=== PATIENT | female | born 1955 | race Caucasian/White ===

== ENCOUNTER 2019-11-02 12:30 | Emergency (ER) | payer SELFPAY ==
[~2019-11-02] VITALS: Ht 167.6 cm; Wt 54.9 kg
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
--- NOTE | 2019-11-02 13:12 | NUR ---
THI SNOW IS AT THE BEDSIDE SPEAKING TO THE PT.
[2019-11-02] MEDS ORDERED: IBUPROFEN 600 MG TABLET PO ONE ×2 (13:25→13:30)
--- NOTE | 2019-11-02 13:28 | NUR ---
PT LEFT FOR CT VIA RNEY
--- NOTE | 2019-11-02 14:16 | NUR ---
DR PETERS IS OUTSIDE AND SPEAKING TO THE PT'S FAMILY.
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
[2019-11-02 15:02] VITALS: BP 130/86
== END 2019-11-02 15:03 | disposition home or self-care (01) ==
LOC: ER 12:30
DX: S42.392A Other fracture of shaft of left humerus, initial encounter for closed fracture (principal); S00.81XA Abrasion of other part of head, initial encounter; S50.812A Abrasion of left forearm, initial encounter; S50.811A Abrasion of right forearm, initial encounter; R51 Headache; E11.9 Type 2 diabetes mellitus without complications; V09.1XXA Pedestrian injured in unspecified nontraffic accident, initial encounter; Y93.89 Activity, other specified; Y92.89 Other specified places as the place of occurrence of the external cause; Y99.8 Other external cause status
CPT/HCPCS: 70450-TC; 73030-TC

== ENCOUNTER 2021-05-13 22:19 | Inpatient (IN) | payer MEDICAID ==
[~2021-05-13] VITALS: Ht 152.4 cm; Wt 61.2 kg
--- NOTE | 2021-05-13 22:35 | NUR ---
BIBDAUGHTER FROM HOME TO ER BED 6. AAOX4. NOT IN RESP DISTRESS. AMBULATORY. BROUGHT IN FOR LOW O2 SAT SINCE FRIDAY. PER DAUGHTER, PT WAS NOTED WITH O2 SAT IN THE 80% ON RA AT HOME. UPON TRIAGE PT WAS NOTED @ 79%. PT IS REPORTED TO HAVE COVID POSITIVE FOR THE PAST 2 WEEKS. MD AT THE BEDSIDE FOR EVAL. AWAITING ORDERS
[2021-05-13] MEDS ORDERED: DEXAMETHASONE SOD PHOSPHATE 10 MG/ML VIAL ONE (23:15)
[2021-05-13] MEDS ORDERED: ACETAMINOPHEN ES 500 MG TABLET ONE (23:15)
[2021-05-13 23:23] LABS: BASOPHILS % (AUTO) 0.1 % (0.0-2.0); EOSINOPHILS % (AUTO) 0.2 % (0.0-6.0); HEMATOCRIT 40 % (33-45); HEMOGLOBIN 13.6 g/dL (11.5-14.8); LYMPHOCYTES # (AUTO) 0.8 K/uL (0.8-4.8); LYMPHOCYTES % (AUTO) 8.9 % (20.0-44.0); MEAN CORPUSCULAR HGB CONC 34 g/dl (31.0-36.0); MEAN CORPUSCULAR VOLUME 88 fL (82-100); MONOCYTES # (AUTO) 0.3 K/uL (0.1-1.30); MONOCYTES % (AUTO) 3.3 % (2.0-12.0); NEUTROPHILS # (AUTO) 7.5 K/uL (1.8-8.9); NEUTROPHILS % (AUTO) 87.5 % (43.0-81.0); PLATELET COUNT (AUTO) 340 K/uL (150-450); RED BLOOD CELL COUNT(AUTO) 4.53 MIL/uL (4.0-5.2); WHITE BLOOD COUNT (AUTO) 8.6 K/uL (4.3-11.0)
[2021-05-13] MEDS ORDERED: ACETAMINOPHEN ES 500 MG TABLET PO ONE (23:30)
[2021-05-13] MEDS ORDERED: DEXAMETHASONE SOD PHOSPHATE 10 MG/ML VIAL IV ONE (23:30)
[2021-05-14] MEDS ORDERED: Z GUARD REMEDY 4 OZ OINT TP PRN
[2021-05-14] MEDS ORDERED: ONDANSETRON HCL/PF 4 MG/2 ML VIAL IVP PRN
[2021-05-14] MEDS ORDERED: MAGNESIUM HYDROXIDE 30 ML UDC PO PRN
[2021-05-14] MEDS ORDERED: MAG HYDROX/AL HYDROX/SIMETH 30 ML UDC PO PRN
[2021-05-14] MEDS ORDERED: ACETAMINOPHEN 325 MG TABLET PO PRN
[2021-05-14] MEDS ORDERED: ZOLPIDEM TARTRATE 5 MG TABLET PO PRN
--- NOTE | 2021-05-14 00:05 | NUR ---
MRSA SWAB COLLECTED AND SENT TO LAB. PATIENT'S BELONGINGS LIST DONE.
[2021-05-14 00:11] LABS: ALANINE AMINOTRANSFERASE 18 U/L (12-78); ALBUMIN 2.3 g/dL (3.4-5.0); ALKALINE PHOSPHATASE 86 U/L (46-116); ASPARTATE AMINOTRANSFERASE 36 U/L (15-37); BILIRUBIN,TOTAL 0.5 mg/dL (0.2-1.0); CALCIUM, SERUM 8.7 mg/dL (8.5-10.1); CARBON DIOXIDE 26 mmol/L (21-32); CHLORIDE 86 mmol/L (98-107); CREATININE 1.1 mg/dL (0.6-1.3); POTASSIUM 4.1 mmol/L (3.5-5.1); SODIUM SERUM 122 mmol/L (136-145); TOTAL PROTEIN, SERUM 7.4 g/dL (6.4-8.2); UREA NITROGEN, BLOOD 27 mg/dL (7-18)
[2021-05-14 00:17] LABS: GLUCOSE 412 mg/dL (74-106)
[2021-05-14] MEDS ORDERED: INSULIN REGULAR, HUMAN 100 UNIT/ML 10 ML VIAL IV ONE (00:30)
[2021-05-14] MEDS ORDERED: IV NS 0.9% 500 ML IV ONE (00:30)
[2021-05-14] MEDS ORDERED: INSULIN REGULAR, HUMAN 100 UNIT/ML 10 ML VIAL ONE (00:47)
[2021-05-14] MEDS ORDERED: DEXTROSE 50%-WATER 50 ML DISP.SYRIN IV PRN (02:00)
[2021-05-14 02:52] LABS: C-REACTIVE PROTEIN 26.7 mg/dL (0.0-0.9)
--- NOTE | 2021-05-14 04:17 | NUR ---
DAUGHTER, SAMIA: [phone]
[2021-05-14 04:22] LABS: BASOPHILS % (AUTO) 0.1 % (0.0-2.0); HEMATOCRIT 40 % (33-45); HEMOGLOBIN 13.6 g/dL (11.5-14.8); LYMPHOCYTES # (AUTO) 0.7 K/uL (0.8-4.8); MEAN CORPUSCULAR HGB CONC 34 g/dl (31.0-36.0); MEAN CORPUSCULAR VOLUME 89 fL (82-100); MONOCYTES # (AUTO) 0.2 K/uL (0.1-1.30); MONOCYTES % (AUTO) 2.6 % (2.0-12.0); NEUTROPHILS # (AUTO) 8.6 K/uL (1.8-8.9); NEUTROPHILS % (AUTO) 90.3 % (43.0-81.0); PLATELET COUNT (AUTO) 344 K/uL (150-450); RED BLOOD CELL COUNT(AUTO) 4.51 MIL/uL (4.0-5.2); WHITE BLOOD COUNT (AUTO) 9.5 K/uL (4.3-11.0)
[2021-05-14 04:35] LABS: CREATININE 1.2 mg/dL (0.6-1.3); PHOSPHORUS 3.1 mg/dL (2.5-4.9); POTASSIUM 4.5 mmol/L (3.5-5.1)
--- NOTE | 2021-05-14 05:18 | NUR ---
PT'S IV GOT DISLODGE ACCIDENTALLY WHEN SHE MOVED. NEW IV STARTED ON RFA 20G.
--- NOTE | 2021-05-14 07:36 | NUR ---
PT ENDORSED TO GALILEA SULLIVAN FOR MARIBEL
[2021-05-14] MEDS ORDERED: PANTOPRAZOLE 40 MG TABLET.DR PO ONE (07:39)
[2021-05-14] MEDS: PANTOPRAZOLE 40 MG TABLET.DR PO SCH (07:43)
[2021-05-14] MEDS: BLOOD SUGAR DIAGNOSTIC 1 EACH STRIP VI SCH ×4 (07:46→22:23)
[2021-05-14] MEDS: *INSULIN REGULAR(HUMULIN R)HUM 100 UNIT/ML VIAL SQ PRN (08:11)
[2021-05-14] MEDS: DEXAMETHASONE SOD PHOSPHATE 10 MG/ML VIAL IV SCH (09:12)
[2021-05-14] MEDS ORDERED: DEXAMETHASONE SOD PHOSPHATE 10 MG/ML VIAL ONE (09:12)
[2021-05-14] MEDS ORDERED: INSU100V7 SQ (09:45)
[2021-05-14] MEDS ORDERED: METF-442 PO (09:45)
[2021-05-14] MEDS ORDERED: LISI-768 PO (09:45)
--- NOTE | 2021-05-14 10:13 | NUR ---
DR LOYOLA AT BEDSIDE,WANTS HIGH FLOW 02 STARTED
[2021-05-14] MEDS ORDERED: ENOXAPARIN SODIUM 30 MG/0.3 ML DISP.SYRIN SQ SCH (11:00)
[2021-05-14] MEDS: AZITHROMYCIN 500 MG in IV D5W 250 ML IV SCH (11:22)
--- NOTE | 2021-05-14 11:24 | NUR ---
bed given 257
[2021-05-14] MEDS: INSULIN REGULAR, HUMAN 100 UNIT/ML 3 ML VIAL SQ PRN ×2 (13:11→17:58)
[2021-05-14 15:10] LABS: ALBUMIN 2.1 g/dL (3.4-5.0); BILIRUBIN,DIRECT 0.2 mg/dL (0.0-0.2); BILIRUBIN,TOTAL 0.4 mg/dL (0.2-1.0)
[2021-05-14 15:44] LABS: FERRITIN 1743 ng/mL (8-388)
[2021-05-14] MEDS ORDERED: REMDESIVIR (CHARGED) 200 MG, *LOADING DOSE 1 EA in IV NS 0.9% 210 ML IV ONE (17:00)
[2021-05-14 17:45] LABS: C-REACTIVE PROTEIN 26.3 mg/dL (0.0-0.9)
--- NOTE | 2021-05-14 19:12 | NUR ---
REPORT GIVEN TO NURSE LAYLA FOR MARIBEL
--- NOTE | 2021-05-14 20:44 | NUR ---
PER RN PT CAN GO UP IN 30 MINS.
--- NOTE | 2021-05-14 20:44 | NUR ---
REPORT GIVEN TO GALILEA GRAHAM
--- NOTE | 2021-05-14 20:44 | NUR ---
RN notes Received report from GALILEA Betancur
--- NOTE | 2021-05-14 21:22 | NUR ---
TRANSFERRED PATIENT TO [facility]
[2021-05-14 21:30] VITALS: BP 139/79
[2021-05-14 22:00] VITALS: BP 139/79
--- NOTE | 2021-05-14 22:00 | NUR ---
cement rubber notes Received Pt from ER nurse GALILEA Betancur. Pt arrived at the unit with a darek, RAYSHAWN protocol and high flow NC and accompanied by RT. Pt is alert and orientedX4. Pt speaks Upper Sorbian and able to make needs known. Pt is on high flow NC 35 L and fio2 100%. O2 sat is 94%. No SOB. No S/s of distress noted. IV site at RFA# 18 is clean, intact, flushes well and SL. Tele monitor showed SR hr at 84. Skin assesment is done and performed. Pt's belonging was checked by ECHO TECHNICIAN and signed by Pt. Reorient Pt to the room and the use of call light. Pt verbalize understanding. received admission orders from MD. Safety precautions is maintained. Bed at low position, brakes locked, side rails upX2, hob elevated and call light is within reach. Will continue to monitor.
[2021-05-14] MEDS: ENOXAPARIN SODIUM 40 MG/0.4 ML DISP.SYRIN SQ SCH (22:26)
[2021-05-15] VITALS: BP 148/90
[2021-05-15 04:00] VITALS: BP_SYST 131; BP_SYST 133; BP_DIAS 76
[2021-05-15] MEDS: BLOOD SUGAR DIAGNOSTIC 1 EACH STRIP VI SCH ×4 (06:28→22:51)
[2021-05-15] MEDS: INSULIN REGULAR, HUMAN 100 UNIT/ML 3 ML VIAL SQ PRN ×3 (06:30→17:30)
--- NOTE | 2021-05-15 06:40 | NUR ---
RN closing notes Pt is resting in bed comfortably. Pt is alert and orientedX4. Pt is on high flow NC 35 L and fio2 100%. No SOB. No S/s of distress noted. IV site at RFA# 18 is clean, intact, flushes well and SL. Tele monitor showed SR hr at 69. Routine meds were given as ordered. Kept Pt clean, dry and comfortable. Safety precautions is maintained. Bed at low position, brakes locked, hob elevated, side rails upX2, hob elevated and call light is within reach. Will endorse to am nurse for MARIBEL.
[2021-05-15 07:04] LABS: BASOPHILS % (AUTO) 0.1 % (0.0-2.0); HEMATOCRIT 39 % (33-45); HEMOGLOBIN 13.4 g/dL (11.5-14.8); LYMPHOCYTES # (AUTO) 0.7 K/uL (0.8-4.8); LYMPHOCYTES % (AUTO) 7.1 % (20.0-44.0); MEAN CORPUSCULAR HGB CONC 35 g/dl (31.0-36.0); MEAN CORPUSCULAR VOLUME 88 fL (82-100); MONOCYTES # (AUTO) 0.5 K/uL (0.1-1.30); MONOCYTES % (AUTO) 4.6 % (2.0-12.0); NEUTROPHILS # (AUTO) 9.2 K/uL (1.8-8.9); NEUTROPHILS % (AUTO) 88.2 % (43.0-81.0); PLATELET COUNT (AUTO) 455 K/uL (150-450); RED BLOOD CELL COUNT(AUTO) 4.38 MIL/uL (4.0-5.2); WHITE BLOOD COUNT (AUTO) 10.4 K/uL (4.3-11.0)
[2021-05-15 07:16] LABS: BILIRUBIN,DIRECT 0.1 mg/dL (0.0-0.2); BILIRUBIN,TOTAL 0.3 mg/dL (0.2-1.0); CALCIUM, SERUM 8.5 mg/dL (8.5-10.1); POTASSIUM 4.2 mmol/L (3.5-5.1); TOTAL PROTEIN, SERUM 6.7 g/dL (6.4-8.2)
[2021-05-15 08:00] VITALS: BP 123/85
[2021-05-15] MEDS: DEXAMETHASONE SOD PHOSPHATE 10 MG/ML VIAL IV SCH (08:40)
[2021-05-15] MEDS: PANTOPRAZOLE 40 MG TABLET.DR PO SCH (08:40)
[2021-05-15] MEDS: ENOXAPARIN SODIUM 40 MG/0.4 ML DISP.SYRIN SQ SCH ×2 (08:54→20:39)
[2021-05-15] MEDS: AZITHROMYCIN 500 MG in IV D5W 250 ML IV SCH (11:19)
[2021-05-15 12:00] VITALS: BP 145/80
[2021-05-15 16:00] VITALS: BP 138/87
--- NOTE | 2021-05-15 16:22 | NUR ---
SCREEN PRINTER HELPER OPENING NOTES RECEIVED PATIENT IN BED, ASLEEP. PATIENT ON OXYGEN THERAPY AT HIGH FLOW AT 35L AND FIO2 AT 100%. BREATHING EVEN AND UNLABORED, NO SOB NOTED. TELE MONITOR WITH A CURRENT READING OF SR. IV ACCESS AT RFA G # 18 SL. NO S/S OF PAIN. SAFETY PRECAUTIONS IN PLACE; BED IN LOW POSITION AND LOCKED, RAILS UP X2, RANDOLPH LIGHT WITHIN REACH. WILL CONTINUE TO MONITOR PATIENT.
[2021-05-15] MEDS: REMDESIVIR (CHARGED) 100 MG in IV NS 0.9% 100 ML IV SCH (17:14)
--- NOTE | 2021-05-15 19:00 | NUR ---
EARLY CHILDHOOD AIDE CLASSROOM CLOSING NOTES PATIENT IN BED, ASLEEP. PATIENT ON OXYGEN THERAPY AT HIGH FLOW AT 35L AND FIO2 AT 100%. BREATHING EVEN AND UNLABORED, NO SOB NOTED. TELE MONITOR WITH A CURRENT READING OF SR 70'S. IV ACCESS AT LWRIST G # 20 SL. NO S/S OF PAIN. SAFETY PRECAUTIONS IN PLACE; BED IN LOW POSITION AND LOCKED, RAILS UP X2, RANDOLPH LIGHT WITHIN REACH. WILL ENDORSE PATIENT FOR CONTINUITY OF CARE.
--- NOTE | 2021-05-15 19:07 | NUR ---
RN opening notes Pt is laying in bed watching TV comfortably. Pt is alert and orientedX4. Pt is on high flow NC 35 L and fio2 100%. No SOB. No S/s of distress noted. IV site at L wrist #20 is clean, intact, flushes well and SL. Tele monitor showed SR hr at 71. Routine meds were given as ordered. Kept Pt clean, dry and comfortable. Safety precautions is maintained. Bed at low position, brakes locked, hob elevated, side rails upX2, hob elevated and call light is within reach. Will continue to monitor.
[2021-05-15 20:00] VITALS: BP 110/70
[2021-05-15] MEDS: *INSULIN REGULAR(HUMULIN R)HUM 100 UNIT/ML VIAL SQ PRN (22:54)
[2021-05-16] VITALS: BP 125/60
[2021-05-16 04:00] VITALS: BP 147/87
[2021-05-16] MEDS: BLOOD SUGAR DIAGNOSTIC 1 EACH STRIP VI SCH ×4 (06:32→22:33)
[2021-05-16] MEDS: INSULIN REGULAR, HUMAN 100 UNIT/ML 3 ML VIAL SQ PRN ×3 (06:34→16:44)
--- NOTE | 2021-05-16 06:42 | NUR ---
RN closing notes Pt is resting in bed comfortably. Pt is alert and orientedX4. Pt is on high flow NC 35 L and fio2 100%. No SOB. No S/s of distress noted. VS is stable and afebrile. IV site at L wrist# 20 is clean, intact, flushes well and SL. Tele monitor showed SR hr at 76. Routine meds were given as ordered. Kept Pt clean, dry and comfortable. Safety precautions is maintained. Bed at low position, brakes locked, hob elevated, side rails upX2, hob elevated and call light is within reach. Will endorse to am nurse for MARIBEL.
[2021-05-16 06:53] LABS: BASOPHILS % (AUTO) 0.1 % (0.0-2.0); HEMATOCRIT 40 % (33-45); HEMOGLOBIN 13.2 g/dL (11.5-14.8); LYMPHOCYTES # (AUTO) 0.7 K/uL (0.8-4.8); LYMPHOCYTES % (AUTO) 6.1 % (20.0-44.0); MEAN CORPUSCULAR HGB CONC 33 g/dl (31.0-36.0); MEAN CORPUSCULAR VOLUME 89 fL (82-100); MONOCYTES # (AUTO) 0.6 K/uL (0.1-1.30); MONOCYTES % (AUTO) 5.1 % (2.0-12.0); NEUTROPHILS # (AUTO) 9.8 K/uL (1.8-8.9); NEUTROPHILS % (AUTO) 88.7 % (43.0-81.0); PLATELET COUNT (AUTO) 476 K/uL (150-450); RED BLOOD CELL COUNT(AUTO) 4.45 MIL/uL (4.0-5.2); WHITE BLOOD COUNT (AUTO) 11.1 K/uL (4.3-11.0)
--- NOTE | 2021-05-16 07:30 | NUR ---
HELPDESK TECHNICIAN NOTES PT IN BED, RESTING, ALERT AND ORIENTED, ABLE TO MAKE NEEDS KNOWN, CALL LIGHT WITHIN REACH, ON HIGH FLOW O2, NO SOB NOTED, NOT IN DISTRESS, WILL CONTINUE TO MONITOR.
[2021-05-16 07:47] LABS: BILIRUBIN,DIRECT 0.1 mg/dL (0.0-0.2); BILIRUBIN,TOTAL 0.3 mg/dL (0.2-1.0); CALCIUM, SERUM 9.7 mg/dL (8.5-10.1); CREATININE 1.1 mg/dL (0.6-1.3); POTASSIUM 4.7 mmol/L (3.5-5.1); TOTAL PROTEIN, SERUM 6.4 g/dL (6.4-8.2)
[2021-05-16 08:00] VITALS: BP 123/65
[2021-05-16] MEDS: DEXAMETHASONE SOD PHOSPHATE 10 MG/ML VIAL IV SCH (09:02)
[2021-05-16] MEDS: PANTOPRAZOLE 40 MG TABLET.DR PO SCH (09:02)
[2021-05-16] MEDS: ENOXAPARIN SODIUM 40 MG/0.4 ML DISP.SYRIN SQ SCH ×2 (09:12→22:20)
[2021-05-16] MEDS: AZITHROMYCIN 500 MG in IV D5W 250 ML IV SCH (10:44)
[2021-05-16 16:00] VITALS: BP 122/63
--- NOTE | 2021-05-16 16:55 | NUR ---
RT Patient currently on 35L High Flow Nasal Cannula FIO2 100% and desaturated to 85%. Placed on dual set up NRB 100%. SPO2 now at 90%. RN Megan notified. Will continue to monitor.
[2021-05-16] MEDS: REMDESIVIR (CHARGED) 100 MG in IV NS 0.9% 100 ML IV SCH (17:13)
--- NOTE | 2021-05-16 18:25 | NUR ---
PAVER OPERATOR NOTES PT IN BED, RESTING, ALERT AND ORIENTED, AND ABLE TO MAKE NEEDS KNOWN, NOT IN DISTRESS, CURRENTLY ON HIGH FLOW O2 AT 100% FIO2 WITH O2 SAT OF 94-95, PM MEDS GIVEN, TOLERATES CURRENT DIET, ALL NEEDS ATTENDED.
[2021-05-16 20:00] VITALS: BP 134/74
[2021-05-16] MEDS: *INSULIN REGULAR(HUMULIN R)HUM 100 UNIT/ML VIAL SQ PRN (22:33)
[2021-05-17] VITALS: BP 131/69
[2021-05-17 04:00] VITALS: BP 119/65
[2021-05-17] MEDS: INSULIN REGULAR, HUMAN 100 UNIT/ML 3 ML VIAL SQ PRN ×4 (07:09→21:50)
--- NOTE | 2021-05-17 07:19 | NUR ---
COMMUNICATION TECHNICIAN OPENING NOTES RECEIVED PATIENT IN BED, ASLEEP. PATIENT ON OXYGEN THERAPY AT HIGH FLOW AT 35L AND FIO2 AT 100%. BREATHING EVEN AND UNLABORED, NO SOB NOTED. TELE MONITOR WITH A CURRENT READING OF SR. IV ACCESS AT LEFT WRIST G # 20 SL. NO S/S OF PAIN. SAFETY PRECAUTIONS IN PLACE; BED IN LOW POSITION AND LOCKED, RAILS UP X2, RANDOLPH LIGHT WITHIN REACH. WILL CONTINUE TO MONITOR PATIENT.
[2021-05-17 07:20] LABS: BILIRUBIN,DIRECT 0.1 mg/dL (0.0-0.2); BILIRUBIN,TOTAL 0.4 mg/dL (0.2-1.0); CALCIUM, SERUM 8.2 mg/dL (8.5-10.1); POTASSIUM 4.3 mmol/L (3.5-5.1); TOTAL PROTEIN, SERUM 6.3 g/dL (6.4-8.2)
[2021-05-17 07:42] LABS: BASOPHILS % (AUTO) 0.2 % (0.0-2.0); EOSINOPHILS % (AUTO) 0.1 % (0.0-6.0); HEMATOCRIT 39 % (33-45); HEMOGLOBIN 13.2 g/dL (11.5-14.8); LYMPHOCYTES % (AUTO) 8.6 % (20.0-44.0); MEAN CORPUSCULAR HGB CONC 34 g/dl (31.0-36.0); MEAN CORPUSCULAR VOLUME 90 fL (82-100); MONOCYTES # (AUTO) 0.5 K/uL (0.1-1.30); MONOCYTES % (AUTO) 4.5 % (2.0-12.0); NEUTROPHILS # (AUTO) 9.8 K/uL (1.8-8.9); NEUTROPHILS % (AUTO) 86.6 % (43.0-81.0); PLATELET COUNT (AUTO) 483 K/uL (150-450); RED BLOOD CELL COUNT(AUTO) 4.37 MIL/uL (4.0-5.2); WHITE BLOOD COUNT (AUTO) 11.3 K/uL (4.3-11.0)
[2021-05-17 08:00] VITALS: BP 128/83
[2021-05-17] MEDS: PANTOPRAZOLE 40 MG TABLET.DR PO SCH (08:25)
[2021-05-17] MEDS: BLOOD SUGAR DIAGNOSTIC 1 EACH STRIP VI SCH ×4 (08:25→21:37)
[2021-05-17] MEDS: ENOXAPARIN SODIUM 40 MG/0.4 ML DISP.SYRIN SQ SCH ×2 (08:44→20:58)
[2021-05-17] MEDS: DEXAMETHASONE SOD PHOSPHATE 10 MG/ML VIAL IV SCH (08:46)
[2021-05-17] MEDS: AZITHROMYCIN 250 MG TABLET PO SCH (11:21)
[2021-05-17] MEDS: REMDESIVIR (CHARGED) 100 MG in IV NS 0.9% 100 ML IV SCH (17:24)
--- NOTE | 2021-05-17 19:00 | NUR ---
INTEGRATED SPECIALIST CLOSING NOTES PATIENT IN BED, ASLEEP. PATIENT ON OXYGEN THERAPY AT HIGH FLOW AT 35L AND FIO2 AT 100%. BREATHING EVEN AND UNLABORED, NO SOB NOTED. TELE MONITOR WITH A CURRENT READING OF SR. IV ACCESS AT LEFT WRIST G # 20 SL. NO S/S OF PAIN. SAFETY PRECAUTIONS IN PLACE; BED IN LOW POSITION AND LOCKED, RAILS UP X2, CALL LIGHT WITHIN REACH. WILL ENDORSE PATIENT FOR CONTINUITY OF CARE.
[2021-05-17 20:00] VITALS: BP 140/52
--- NOTE | 2021-05-17 20:29 | NUR ---
MS2 RN OPENING NOTE PATIENT RECEIVED IN BED AWAKE. A/OX4. NO S/S OF DISTRESS, BREATHING SYMMETRICAL. LW #20 SL PATENT AND INTACT. SAFETY MEASURES IN PLACE: BED AT LOWEST POSITION, RAILS UP X2, CALL ERWIN WITHIN REACH. WILL CONTINUE TO MONITOR PATIENT.
[2021-05-18] VITALS: BP 136/81
[2021-05-18 04:00] VITALS: BP 128/94
[2021-05-18] MEDS: INSULIN REGULAR, HUMAN 100 UNIT/ML 3 ML VIAL SQ PRN ×3 (06:08→17:10)
[2021-05-18] MEDS: BLOOD SUGAR DIAGNOSTIC 1 EACH STRIP VI SCH ×4 (07:02→21:18)
--- NOTE | 2021-05-18 07:23 | NUR ---
GATE ATTENDANT CLOSING NOTE PATIENT AWAKE IN ROOM. A/OX4. NO S/S OF DISTRESS, BREATHING W/O DIFFICULTY. HIGH FLOW. SAFETY MEASURES IN PLACE: BED AT LOWEST POSITION, RAILS UP X2, CALL ERWIN WITHIN REACH. WILL ENDORSE TO NEXT SHIFT FOR MARIBEL.
--- NOTE | 2021-05-18 07:30 | NUR ---
RN OPENING NOTE- PATIENT RECEIVED IN BED. SLEEPING THOUGH EASILY AWAKENED. A/OX4. NO S/S OF DISTRESS, PT ON HIGH FLOW O2, SATURATION 98%. . LW #20 SL PATENT AND INTACT. SAFETY MEASURES IN PLACE: BED AT LOWEST POSITION, RAILS UP X2, CALL ERWIN WITHIN REACH. WILL CONTINUE TO MONITOR PATIENT.
[2021-05-18 07:34] LABS: BASOPHILS % (AUTO) 0.1 % (0.0-2.0); EOSINOPHILS % (AUTO) 0.1 % (0.0-6.0); HEMATOCRIT 40 % (33-45); HEMOGLOBIN 13.5 g/dL (11.5-14.8); LYMPHOCYTES # (AUTO) 0.9 K/uL (0.8-4.8); LYMPHOCYTES % (AUTO) 7.9 % (20.0-44.0); MEAN CORPUSCULAR HGB CONC 34 g/dl (31.0-36.0); MEAN CORPUSCULAR VOLUME 90 fL (82-100); MONOCYTES # (AUTO) 0.5 K/uL (0.1-1.30); MONOCYTES % (AUTO) 4.4 % (2.0-12.0); NEUTROPHILS % (AUTO) 87.5 % (43.0-81.0); PLATELET COUNT (AUTO) 472 K/uL (150-450); RED BLOOD CELL COUNT(AUTO) 4.46 MIL/uL (4.0-5.2); WHITE BLOOD COUNT (AUTO) 11.5 K/uL (4.3-11.0)
[2021-05-18] MEDS: PANTOPRAZOLE 40 MG TABLET.DR PO SCH (07:48)
[2021-05-18 08:00] VITALS: BP 130/70
[2021-05-18] MEDS: DEXAMETHASONE SOD PHOSPHATE 10 MG/ML VIAL IV SCH (08:25)
[2021-05-18] MEDS: ENOXAPARIN SODIUM 40 MG/0.4 ML DISP.SYRIN SQ SCH ×2 (08:25→21:05)
[2021-05-18 09:12] LABS: BILIRUBIN,DIRECT 0.1 mg/dL (0.0-0.2); BILIRUBIN,TOTAL 0.4 mg/dL (0.2-1.0); CALCIUM, SERUM 8.8 mg/dL (8.5-10.1); CREATININE 0.9 mg/dL (0.6-1.3); POTASSIUM 4.1 mmol/L (3.5-5.1); TOTAL PROTEIN, SERUM 6.3 g/dL (6.4-8.2)
[2021-05-18] MEDS: AZITHROMYCIN 250 MG TABLET PO SCH (10:49)
[2021-05-18] MEDS: REMDESIVIR (CHARGED) 100 MG in IV NS 0.9% 100 ML IV SCH (16:49)
--- NOTE | 2021-05-18 18:47 | NUR ---
RN CLOSING NOTE- PT IN BED. A/OX4. NO S/S OF DISTRESS, PT ON HIGH FLOW O2, SATURATION 96%LW #20 SL PATENT AND INTACT. IVF NS KVO. SAFETY MEASURES IN PLACE: BED AT LOWEST POSITION, RAILS UP X2, CALL ERWIN WITHIN REACH. WILL CONTINUE TO MONITOR PATIENT.
[2021-05-18 20:00] VITALS: BP 125/84
--- NOTE | 2021-05-18 20:02 | NUR ---
RN NOTES RECEIVED PATIENT IN BED, ALERT/ORIENTED X3, HIGH FLOW O2 15LPM, SPO2 WHEN SITTING ON COMMODE 89%, NO DISTRESS, NO SOB, IT GETS BETTER AT 90%, CONTINENT OF BOWEL AND BLADDER, BSC, WEARS PULL UPS, KEPT SAFE, KEPT HOB AT HIGH FOWLERS, WILL CONTINUE TO MONITOR.
[2021-05-18] MEDS: *INSULIN REGULAR(HUMULIN R)HUM 100 UNIT/ML VIAL SQ PRN (21:18)
[2021-05-19] VITALS: BP 138/76
[2021-05-19 04:00] VITALS: BP 119/68
[2021-05-19] MEDS: BLOOD SUGAR DIAGNOSTIC 1 EACH STRIP VI SCH ×4 (06:37→22:04)
[2021-05-19] MEDS: INSULIN REGULAR, HUMAN 100 UNIT/ML 3 ML VIAL SQ PRN ×3 (06:41→17:41)
--- NOTE | 2021-05-19 07:00 | NUR ---
RN NOTES ALERT/ORIENTED X4, CALM, DRY COUGH, HIGH FLOW AT 15 LPM VIA NC, SPO2 AT REST 90-94% WITH ACTIVITY, OR SITTING, SPO2 GOES DOWN TO 84%, REMDESIVIR COMPLETED, REMAINED ON HIGH FLOW, CONTINUE STEROIDS.
--- NOTE | 2021-05-19 07:32 | NUR ---
RN OPENING NOTE- PATIENT AWAKE IN BED A/OX4. NO S/S OF DISTRESS, PT ON HIGH FLOW O2, SATURATION 99%. . LW #20 SL PATENT AND INTACT. SAFETY MEASURES IN PLACE: BED AT LOWEST POSITION, RAILS UP X2, CALL ERWIN WITHIN REACH. WILL CONTINUE TO MONITOR PATIENT.
[2021-05-19] MEDS: PANTOPRAZOLE 40 MG TABLET.DR PO SCH (07:52)
[2021-05-19 08:00] VITALS: BP 130/60
[2021-05-19 08:09] LABS: BASOPHILS % (AUTO) 0.1 % (0.0-2.0); EOSINOPHILS % (AUTO) 0.3 % (0.0-6.0); HEMATOCRIT 39 % (33-45); HEMOGLOBIN 12.9 g/dL (11.5-14.8); LYMPHOCYTES # (AUTO) 0.9 K/uL (0.8-4.8); LYMPHOCYTES % (AUTO) 5.8 % (20.0-44.0); MEAN CORPUSCULAR HGB CONC 34 g/dl (31.0-36.0); MEAN CORPUSCULAR VOLUME 89 fL (82-100); MONOCYTES # (AUTO) 0.6 K/uL (0.1-1.30); MONOCYTES % (AUTO) 3.7 % (2.0-12.0); NEUTROPHILS # (AUTO) 14.4 K/uL (1.8-8.9); NEUTROPHILS % (AUTO) 90.1 % (43.0-81.0); PLATELET COUNT (AUTO) 467 K/uL (150-450); RED BLOOD CELL COUNT(AUTO) 4.36 MIL/uL (4.0-5.2)
[2021-05-19 08:13] LABS: CALCIUM, SERUM 7.9 mg/dL (8.5-10.1); CREATININE 0.8 mg/dL (0.6-1.3); MAGNESIUM 1.8 mg/dL (1.8-2.4); PHOSPHORUS 3.2 mg/dL (2.5-4.9); POTASSIUM 3.9 mmol/L (3.5-5.1)
[2021-05-19] MEDS: DEXAMETHASONE SOD PHOSPHATE 10 MG/ML VIAL IV SCH (08:59)
[2021-05-19] MEDS: ENOXAPARIN SODIUM 40 MG/0.4 ML DISP.SYRIN SQ SCH ×2 (08:59→21:42)
[2021-05-19 12:00] VITALS: BP 94/40
[2021-05-19 16:00] VITALS: BP 125/77
--- NOTE | 2021-05-19 18:36 | NUR ---
RN CLOSING NOTE-PATIENT AWAKE IN BED A/OX4. NO S/S OF DISTRESS, PT ON HIGH FLOW O2, SATURATION 99%. . LW #20 SL PATENT AND INTACT. SAFETY MEASURES IN PLACE: BED AT LOWEST POSITION, RAILS UP X2, CALL ERWIN WITHIN REACH. WILL CONTINUE TO MONITOR PATIENT.
--- NOTE | 2021-05-19 19:21 | NUR ---
RN OPENING NOTE- PATIENT AWAKE IN BED A/OX4. NO S/S OF DISTRESS, PT ON HIGH FLOW O2, SATURATION 97 LW #20 SL PATENT AND INTACT. SAFETY MEASURES IN PLACE: BED AT LOWEST POSITION, RAILS UP X2, CALL ERWIN WITHIN REACH. WILL CONTINUE TO MONITOR PATIENT.
[2021-05-19 20:00] VITALS: BP 124/57
--- NOTE | 2021-05-19 20:13 | NUR ---
RT PT RECVD ON HFNC 35 LPM 100% FIO2. PT AWAKE AND VERBAL (PRYDEINIG), NO RESPIRATORY DISTRESS NOTED AT THIS TIME WILL CONTINUE TO MONITOR. CURRENT SPO2 IS 95%.
[2021-05-19] MEDS ORDERED: BUMETANIDE INJ 6 MG in IV NS 0.9% 36 ML IV ONE (21:00)
[2021-05-19] MEDS: *INSULIN REGULAR(HUMULIN R)HUM 100 UNIT/ML VIAL SQ PRN (22:08)
[2021-05-19] MEDS ORDERED: BUMETANIDE INJ 0.25 MG/ML VIAL ONE ×2 (22:37→22:38)
--- NOTE | 2021-05-19 23:34 | NUR ---
RN NOTES PT HAS NO IV ACCESS UNABLE TO START [facility] WILL ATTEMPT TO GET ACCESS.
--- NOTE | 2021-05-19 23:52 | NUR ---
OPERATIONS PLANNER NOTES ABLE TO GET IV ACCESS RAC #20G B[facility]EX STARTED AT THIS TIME.
[2021-05-20] VITALS: BP 112/62
[2021-05-20 04:00] VITALS: BP 112/64
--- NOTE | 2021-05-20 06:27 | NUR ---
RN NOTES PT DESATURATING HIGH 70S- LOW 80S RT CALLED PLACED PT ON THE NON REBREATHER 15L ON TOP ON THE HIGH FLOW 35L PT IS NOW SATURATING AT 90-94%. WILL CONTINUE TO MONITOR.
[2021-05-20] MEDS: INSULIN REGULAR, HUMAN 100 UNIT/ML 3 ML VIAL SQ PRN ×3 (06:39→16:57)
--- NOTE | 2021-05-20 06:55 | NUR ---
RN CLOSING NOTE PATIENT AWAKE IN BED A/OX4. NO S/S OF DISTRESS, PT ON HIGH FLOW ON 35 L/ WITH NON REBREATHER ON TOP 15L O2, SATURATION 90-94% LW #20 SL PATENT AND INTACT. SAFETY MEASURES IN PLACE: BED AT LOWEST POSITION, RAILS UP X2, CALL ERWIN WITHIN REACH. PT REPEATEDLY INSTRUCTED NOT TO GET UP DO TO THE FACT SHE DESATURATES PT CONTINUES TO SAY " IM FINE IM BREATHING WELL" RT AND PRIMARY NURSE EXPLAINED TO PT WHY SHE SHOULD NOT BE GETTING UP. CALL LIGHT PLACED WITHIN REACH. BED ALARM ON TABLE WITHIN REAVH. WILL CONTINUE TO MONITOR.
[2021-05-20 07:10] LABS: BASOPHILS % (AUTO) 0.2 % (0.0-2.0); EOSINOPHILS % (AUTO) 0.4 % (0.0-6.0); HEMATOCRIT 41 % (33-45); HEMOGLOBIN 13.7 g/dL (11.5-14.8); LYMPHOCYTES # (AUTO) 0.8 K/uL (0.8-4.8); LYMPHOCYTES % (AUTO) 4.6 % (20.0-44.0); MEAN CORPUSCULAR HGB CONC 34 g/dl (31.0-36.0); MEAN CORPUSCULAR VOLUME 90 fL (82-100); MONOCYTES # (AUTO) 0.6 K/uL (0.1-1.30); MONOCYTES % (AUTO) 3.1 % (2.0-12.0); NEUTROPHILS # (AUTO) 16.7 K/uL (1.8-8.9); NEUTROPHILS % (AUTO) 91.7 % (43.0-81.0); PLATELET COUNT (AUTO) 418 K/uL (150-450); RED BLOOD CELL COUNT(AUTO) 4.55 MIL/uL (4.0-5.2); WHITE BLOOD COUNT (AUTO) 18.2 K/uL (4.3-11.0)
[2021-05-20 07:24] LABS: CALCIUM, SERUM 8.3 mg/dL (8.5-10.1); MAGNESIUM 1.8 mg/dL (1.8-2.4); PHOSPHORUS 3.6 mg/dL (2.5-4.9)
[2021-05-20] MEDS: BLOOD SUGAR DIAGNOSTIC 1 EACH STRIP VI SCH ×4 (07:31→22:00)
[2021-05-20 08:00] VITALS: BP 104/62
--- NOTE | 2021-05-20 08:00 | NUR ---
LITHOGRAPH PRESS OPERATOR OPENING NOTE Patient in bed, asleep. A/O x 4. On high flow O2 at 35 LPM with non-rebreather at 15 LMP, no SOB or s/s of distress noted. IV access on LAC #20G, intact and patent. On tele monitoring showing SR, HR on the 70's. Safety precautions in place: bed in low, locked position; siderails up x 2; call light within reach. Will continue to monitor.
[2021-05-20] MEDS: PANTOPRAZOLE 40 MG TABLET.DR PO SCH (08:16)
[2021-05-20] MEDS: DEXAMETHASONE SOD PHOSPHATE 10 MG/ML VIAL IV SCH (08:17)
[2021-05-20] MEDS: ENOXAPARIN SODIUM 40 MG/0.4 ML DISP.SYRIN SQ SCH ×2 (08:18→21:11)
[2021-05-20 12:00] VITALS: BP 125/73
[2021-05-20 16:00] VITALS: BP 100/59
--- NOTE | 2021-05-20 19:31 | NUR ---
ECONOMICS INSTRUCTOR CLOSING NOTE Patient in bed, resting. A/O x 4, able to make needs known. On high flow O2 at 35 LPM with non-rebreather at 15 LMP, no SOB or s/s of distress noted. IV access on LAC #20G, intact and patent. On tele monitoring showing SR, HR on the 70's. All needs atteneded to. Due meds given. Safety precautions maintained: bed in low, locked position; siderails up x 2; call light within reach. Will endorse to buffer inflated pad nurse for MARIBEL.
[2021-05-20 20:00] VITALS: BP_SYST 104; BP_SYST 98; BP_DIAS 56; BP_DIAS 66
[2021-05-20] MEDS: *INSULIN REGULAR(HUMULIN R)HUM 100 UNIT/ML VIAL SQ PRN (23:15)
[2021-05-21] VITALS: BP_SYST 104; BP_SYST 98; BP_DIAS 56; BP_DIAS 66
[2021-05-21 04:00] VITALS: BP 101/63
--- NOTE | 2021-05-21 04:46 | NUR ---
RN notes Resting comfortably in bed. Noted with distress with very little activity. On non rebreather mask at 15lpm and on high flow oxygen tolerating well. Alert and oriented x 4, macanese speaking. Understands a little indian. Kept clean and dry. Will endorse to next shift for continuity of care.
[2021-05-21 07:13] LABS: BASOPHILS % (AUTO) 0.1 % (0.0-2.0); HEMATOCRIT 41 % (33-45); HEMOGLOBIN 13.7 g/dL (11.5-14.8); LYMPHOCYTES # (AUTO) 0.8 K/uL (0.8-4.8); LYMPHOCYTES % (AUTO) 3.7 % (20.0-44.0); MEAN CORPUSCULAR HGB CONC 34 g/dl (31.0-36.0); MEAN CORPUSCULAR VOLUME 89 fL (82-100); MONOCYTES # (AUTO) 0.6 K/uL (0.1-1.30); MONOCYTES % (AUTO) 2.9 % (2.0-12.0); NEUTROPHILS # (AUTO) 19.5 K/uL (1.8-8.9); NEUTROPHILS % (AUTO) 93.3 % (43.0-81.0); PLATELET COUNT (AUTO) 401 K/uL (150-450); RED BLOOD CELL COUNT(AUTO) 4.58 MIL/uL (4.0-5.2)
--- NOTE | 2021-05-21 07:30 | NUR ---
JOY LOADER OPENING NOTE Patient in bed, asleep. A/O x 4. Icelandic speaking. Breanna amado doing the translation .On high flow with non-rebreather at 15 LMP, no SOB noted. o2 sat noted from 78 to 91 % . IV access on LAC #20G, intact and patent. On tele monitoring showing SR. Safety precautions in place: bed in low, locked position; siderails up x 2; call light within reach. Will continue to monitor.
[2021-05-21 07:56] LABS: CALCIUM, SERUM 8.2 mg/dL (8.5-10.1); PHOSPHORUS 3.4 mg/dL (2.5-4.9); POTASSIUM 3.8 mmol/L (3.5-5.1)
[2021-05-21 08:00] VITALS: BP 97/54
[2021-05-21] MEDS: PANTOPRAZOLE 40 MG TABLET.DR PO SCH (08:08)
[2021-05-21] MEDS: BLOOD SUGAR DIAGNOSTIC 1 EACH STRIP VI SCH ×4 (08:14→21:42)
[2021-05-21] MEDS: INSULIN REGULAR, HUMAN 100 UNIT/ML 3 ML VIAL SQ PRN ×3 (08:19→17:16)
[2021-05-21] MEDS: DEXAMETHASONE SOD PHOSPHATE 10 MG/ML VIAL IV SCH (08:24)
[2021-05-21] MEDS: LISINOPRIL (5MG) 5 MG TABLET PO SCH (08:25)
[2021-05-21] MEDS: ENOXAPARIN SODIUM 40 MG/0.4 ML DISP.SYRIN SQ SCH ×2 (08:28→20:15)
--- NOTE | 2021-05-21 11:20 | NUR ---
RT ABG DONE PER MD ORDER. RESULTS SHOWN TO DR. BUCKNER. VIOLETTE RN NOTIFIED AND AWARE OF RESULTS. ABG MACHINE DOWN. DOWNTIME PROCEDURES DONE. ABG RESULTS PLACED IN CHART.
--- NOTE | 2021-05-21 11:30 | NUR ---
RN NOTES THIS MORNING RT ILENE AND GILDARDO CAMACHO RT PRESENT. PATIENT ALERT AND ORIENTED TIMES 4. PATIENT REFUSED INTUBATION AND AFTER DAUGHTER CONVERSATION ON THE PHONE AND URDU TRANSLATION , PATIENT AGREED DNR/DNI CODE STATUS. INFORMED DR. ADE PARHAM AT 1130. DR PARHAM AWARE OF THE DNR/DNI CODE STATUS.
[2021-05-21 12:00] VITALS: BP 133/74
[2021-05-21 16:00] VITALS: BP 113/62
[2021-05-21 17:04] LABS: ALANINE AMINOTRANSFERASE 11 U/L (12-78); ALBUMIN 1.8 g/dL (3.4-5.0); ALKALINE PHOSPHATASE 115 U/L (46-116); ASPARTATE AMINOTRANSFERASE 29 U/L (15-37); BILIRUBIN,DIRECT 0.2 mg/dL (0.0-0.2); BILIRUBIN,TOTAL 0.5 mg/dL (0.2-1.0); TOTAL PROTEIN, SERUM 6.6 g/dL (6.4-8.2)
[2021-05-21] MEDS ORDERED: ACETAMINOPHEN 325 MG TABLET PO ONE (17:10)
[2021-05-21] MEDS ORDERED: methylPREDNISolone SOD SUCC 40 MG/ML VIAL IV ONE (17:11)
[2021-05-21] MEDS ORDERED: diphenhydrAMINE HCL 50 MG/ML VIAL IV ONE (17:11)
[2021-05-21 17:23] LABS: C-REACTIVE PROTEIN 27.5 mg/dL (0.0-0.9)
[2021-05-21] MEDS ORDERED: TOCILIZUMAB 400 MG in IV NS 0.9% 80 ML IV ONE (17:30)
--- NOTE | 2021-05-21 19:09 | NUR ---
COLLIERY CLERK CLOSING NOTE Patient in bed, awake. A/O x 4. Citizen Of [place] speaking. Breanna amado doing the translation .On high flow with non-rebreather at 15 LMP, no SOB noted. o2 sat noted from 72 to 79% . Renan Quezada aware of the oxygen saturation levels.IV access on LAC #20G, intact and patent. On tele monitoring showing SR.Al due meds given as ordered.Safety precautions in place: bed in low, locked position; siderails up x 2; call light within reach. Will endorse incoming shift for sina.
--- NOTE | 2021-05-21 19:30 | NUR ---
TELE/RN NOTES PT AWAKE IN BED, A/OX4, ABLE TO MAKE NEEDS KNOWN. RESPIRATION EVEN AND DEEP. CONT ON HIGH FLOW O2 @40 AND NONREBREATHER MASK @15LPM. O2 SAT 74-81%. MD AND RT AWARE OF LOW SATS. PT STATES, "I'M OK". TELE MONITOR READING SR, HR 89. IV SITE L-AC #20G INTACT/PATENT/FLUSHES WELL. SAFETY MEASURES IN PLACE. WILL CONT TO MONITOR.
[2021-05-21 20:00] VITALS: BP 113/73
--- NOTE | 2021-05-21 20:20 | NUR ---
RT PT RECVD AWAKE AND ALERT, ON HFNC 40 LPM, 100% + NRB, 76% SPO2
[2021-05-21] MEDS: *INSULIN REGULAR(HUMULIN R)HUM 100 UNIT/ML VIAL SQ PRN (21:44)
--- NOTE | 2021-05-21 22:09 | NUR ---
RN NOTE RECEIVED CALL FROM PT'S DAUGHTER, SAMIA, SHE WANTS TO TAKE HER MOM HOME AMA. EXPLAINED PT'S STATUS/OXYGENATION ON HIGH FLOW AND NONREBREATHER MASK. RT ALSO SPOKE WITH HER AT LENGTH RE O2 NEED. SHUTDOWN COORDINATOR INFORMED AND SHE SPOKE WITH DAUGHTER WELL. DAUGHTER STILL DECIDES TO TAKE HER HOME IN HER PRIVATE CAR. MADE AWARE.
--- NOTE | 2021-05-21 22:26 | NUR ---
RN NOTE SPOKE W/PT RE DAUGHTER, SAMIA, WANTING TO TAKE HER HOME NOW. EXPLAINED HER O2 NEED AND THAT HER FAMILY DOESN'T HAVE O2 FOR HER YET. RT SPOKE WITH PT IN [place] AND EXPLAINED HER O2 STATUS. PT IS ALERT AND WELL AWARE. PT CALLED HER DAUGHTER AND SPOKE TO HER ON THE PHONE. THEY BOTH CAME TO AN AGREEMENT TO GO IN THE MORNING, DAUGHTER STATES THEY WILL GET OXYGEN FIRST THING IN THE MORNING AND THEN THEY WILL COME AND GET HER ONCE THEY HAVE O2 AT HOME.
--- NOTE | 2021-05-21 23:15 | NUR ---
RN NOTE PT CONT ON HIGH FLOW AND NONREBREATHER MASK. STILL LOW SATS 69-72%. PT TACHYPNEIC, RR 28. DNP MIRTHA ORDERED ALBUTEROL 2 PUFFS Q4H PRN FOR SOB.
[2021-05-21] MEDS ORDERED: ALBUTEROL SULFATE INH 18 GM HFA.AER.AD IH PRN (23:30)
[2021-05-21] MEDS ORDERED: ALBUTEROL SULFATE 8 GM HFA.AER.AD ONE (23:41)
[2021-05-22] VITALS: BP 120/73
[2021-05-22] MEDS ORDERED: ALBUTEROL SULFATE INH 18 GM HFA.AER.AD IH PRN ×2 (00:03)
[2021-05-22 02:28] LABS: ABG BASE EXCESS 0.1 mmol/L; ABG OXYGEN SATURATION 73.7 % (92.0-98.5); ABG PCO2 33.2 mmHg (35.0-45.0); ABG PH 7.461 (7.350-7.450); ABG PO2 35.2 mmHg (75.0-100.0); AaDO2 644.6 mmHg; COHb 0.7 % (0.5-1.5); MetHb 0.1 % (0.0-1.5); O2Hb 73.1 % (94.0-97.0); SITE, ABG Right Brachial
[2021-05-22 04:00] VITALS: BP 125/88
--- NOTE | 2021-05-22 06:24 | NUR ---
RN NOTE PHLEB REPORTS PT REFUSED BLOOD DRAW, WITH EXPLANATION IN TANZANIAN. PT CONTINUES TO REFUSE.
[2021-05-22] MEDS: INSULIN REGULAR, HUMAN 100 UNIT/ML 3 ML VIAL SQ PRN (06:35)
[2021-05-22] MEDS: BLOOD SUGAR DIAGNOSTIC 1 EACH STRIP VI SCH ×2 (07:00→12:00)
--- NOTE | 2021-05-22 07:00 | NUR ---
RN NOTE PT RESTING IN BED, EASILY AROUSABLE TO STIMULI. A/OX4, ABLE TO VERBALIZE NEEDS. PT CONTINUES ON HIGH FLOW O2 @40 AND NONREBREATHER MASK @15LPM. O2 SATS 67-71%. PT AWAKE/VERBAL. PT STILL WANTING TO GO HOME AMA. ENDORSED TO NEXT SHIFT NURSE.
[2021-05-22] MEDS: PANTOPRAZOLE 40 MG TABLET.DR PO SCH (07:30)
--- NOTE | 2021-05-22 07:30 | NUR ---
RN OPENING NOTES RECEIVED PATIENT IN BED AWAKE, A/O X4, LITHUANIAN SPEAKING AND ABLE TO MAKES NEEDS KNOWN. PATIENT HAS AN ORDER FOR DNR/DNI. PATIENT CONTINUES ON HIGH FLOW O2 @40% AND NONREBREATHER MASK @15LPM. O2 SATS 64-66% AT THIS TIME. PATIENT DENIES PAIN. PATIENT IS REQUESTING TO LEAVE AMA AND REFUSES FURTHER TREATMENT AT THIS TIME. DOCTORS AND TEAM ARE AWARE OF PATIENT REQUESTS. SAFETY MEASURES IN PLACE: BED IN LOWEST POSITION, WHEELS ARE LOCKED, SIDE RAILS UP X2, CALL LIGHT WITHIN REACH. WILL CONTINUE PLAN OF CARE.
[2021-05-22 08:00] VITALS: BP 124/74
--- NOTE | 2021-05-22 08:30 | NUR ---
RN NOTES PATIENT IS REFUSING ALL MORNING MEDICATIONS. PATIENT WAS EDUCATED ON IMPORTANCE OF MEDICATIONS AND CARE PLAN FOR HEALTH AND SAFETY, PATIENT CONTINUES TO REFUSE. PATIENT CODE STATUS IS DNR/DNI. WILL CONTINUE TO MONITOR PATIENT
[2021-05-22] MEDS: DEXAMETHASONE SOD PHOSPHATE 10 MG/ML VIAL IV SCH (08:50)
[2021-05-22] MEDS: ENOXAPARIN SODIUM 40 MG/0.4 ML DISP.SYRIN SQ SCH (08:50)
[2021-05-22] MEDS: LISINOPRIL (5MG) 5 MG TABLET PO SCH (08:50)
[2021-05-22 12:00] VITALS: BP 128/74
--- NOTE | 2021-05-22 12:00 | NUR ---
RN NOTES PATIENT REFUSED BLOOD SUGAR CHECK. PATIENT WAS EDUCATED ON IMPORTANCE FOR HEALTH AND SAFETY. PATIENT CONTINUED TO REFUSE. WILL CONTINUE TO MONITOR
--- NOTE | 2021-05-22 12:35 | NUR ---
RN NOTES PATIENT IS INCREASINGLY BECOMING MORE RESTLESS, TRYING TO REMOVE FACE MASK AND NC. REMAINS A/O X4 AND DENIES PAIN AT THIS TIME. PATIENT IS ON HIGH FLOW 40% AND NON REBREATHER MASK @ 15 LPM WITH O2 SAT OF 64%. EDUCATED PATIENT ON IMPORTANCE OF MAINTAINING OXYGEN EQUIPMENT IN PLACE FOR HEALTH AND SAFETY. PATIENT HAS ORDER FOR DNR/DNI. WILL CONTINUE TO MONITOR.
--- NOTE | 2021-05-22 12:49 | NUR ---
RN NOTES PATIENT WAS FOUND UNRESPONSIVE WITH VERBAL AND PAINFUL STIMULI. NO RISE AND FALL OF CHEST NOTED. VITAL SIGNS NOT APPRECIATED. NO PALPABLE PULSES NOTED. DR KARLO CALDERA WAS INFORMED. PRONOUNCED PATIENT . INFORMED FAMILY. POST MORTEM CARE PERFORMED.
--- NOTE | 2021-05-22 13:30 | NUR ---
RN NOTES [facility] WAS NOTIFIED OF . RECORD OF FORMS IS FILLED OUT AND PATIENTS DAUGHTERSAMIA HAS SIGNED DOCUMENTATION. NO ARRANGEMENTS ARE SET UP AT THIS TIME. DAUGHTER WAS INFORMED OF HOSPITAL POLICY FOR RELEASE OF THE BODY. NO QUESTIONS FROM FAMILY MEMBERS AT THIS TIME. NURSING SILK SCREEN OPERATOR, INOCENCIO IS MADE AWARE OF SITUATION.
== END 2021-05-22 12:50 | DRG 137 ==
LOC: ER 22:19 → TRANSITION 23:09 → ICU 05-14 11:56 → TRANSITION 05-14 12:21 → TELE2 05-14 20:42
PROVIDERS: ADMIT Student in an Organized Health Care Education/Training Program; ATTEND Nurse Practitioner Family
PROC: XW033E5 Introduction of Remdesivir Anti-infective into Peripheral Vein, Percutaneous Approach, New Technology Group 5 (ICD-10-PCS; principal; 2021-05-14)
PROC: XW033H5 Introduction of Tocilizumab into Peripheral Vein, Percutaneous Approach, New Technology Group 5 (ICD-10-PCS; 2021-05-21)
DX: U07.1 COVID-19 (principal); J96.01 Acute respiratory failure with hypoxia; N17.0 Acute kidney failure with tubular necrosis; J12.82 Pneumonia due to coronavirus disease 2019; D69.6 Thrombocytopenia, unspecified; E22.2 Syndrome of inappropriate secretion of antidiuretic hormone; J15.9 Unspecified bacterial pneumonia; E88.09 Other disorders of plasma-protein metabolism, not elsewhere classified; E44.0 Moderate protein-calorie malnutrition; E11.65 Type 2 diabetes mellitus with hyperglycemia; Z66 Do not resuscitate; Z68.26 Body mass index [BMI] 26.0-26.9, adult; Z79.84 Long term (current) use of oral hypoglycemic drugs
CPT/HCPCS: 36415; 36600; 71045-TC; 80048-TC; 80053-TC; 80076-TC; 82728-TC; 82962-TC; 83605-TC; 83735-TC; 84100-TC; 84484-TC; 85025-TC; 85378-TC; 85610-TC; 85730-TC; 86140-TC; 87081-TC; 94640-TC; 94760-TC; 94762-TC; 94799-TC; A4216; G0378; J0456; J1100; J1200; J1650; J1815; J2405; J2920; J3262; J3490; J7030; J7040; J7050; J7060; U0003